=== PATIENT | male | born 1930 | race Caucasian/White ===

== ENCOUNTER 2016-08-10 05:37 | Inpatient (IN) | payer MEDICARE, BC ==
[2016-08-10] VITALS (36 sets, daily range): BP systolic 90–168; BP diastolic 51–81; PULSE 24–111; RESP 10–22; Ht 172.7 cm; Wt 67.5 kg
[~2016-08-10] VITALS: Ht 172.7 cm; Wt 67.5 kg
[2016-08-10] MEDS ORDERED: POLYMYXIN B 500000 UNIT INJ ONE (06:51)
[2016-08-10] MEDS ORDERED: SODIUM CL BACTERIOSTATIC 30 ML INJ ONE (06:51)
[2016-08-10] MEDS ORDERED: VANCOMYCIN 1 GM INJ ONE (06:51)
[2016-08-10] MEDS ORDERED: BUPIVACAINE LIPOSOME/PF 266 MG/20 ML VIAL INFIL SCH (07:00)
[2016-08-10] MEDS ORDERED: PREGABALIN 300 MG PO X1 PO SCH (07:00)
[2016-08-10] MEDS ORDERED: CEFAZOLIN 2GM/50 ML (PMX) 50 ML X1 BEFORE INCISION IVPB SCH (07:00)
[2016-08-10] MEDS ORDERED: SOD CHLORIDE 0.9% IV SCH (07:00)
[2016-08-10] MEDS ORDERED: LACTATED RINGER'S 1,000 ML IV SCH ×2 (07:00→10:05)
[2016-08-10] MEDS ORDERED: CELECOXIB 400 MG PO X1 DOSE PO SCH (07:00)
[2016-08-10] MEDS ORDERED: oxyCODONE (CR) 10 MG TAB [oxyCONTIN] X1 DOSE PO SCH (07:00)
[2016-08-10] MEDS ORDERED: SOD CHLORIDE 0.9% IVPB SCH (07:00)
[2016-08-10] MEDS ORDERED: PAIN COCKTAIL-CEFUROXIME IRR SCH ×7 (07:00)
[2016-08-10] MEDS ORDERED: EXPAREL NOTE (BUPIVICAINE LIPOSOMAL) XX SCH (07:00)
[2016-08-10] MEDS ORDERED: TRANEXAMIC ACID IV SCH (07:00)
[2016-08-10] MEDS ORDERED: traMADOL 50 MG TAB X 1 DOSE PO SCH (07:00)
[2016-08-10] MEDS ORDERED: TRANEXAMIC ACID IVPB SCH (07:00)
[2016-08-10] MEDS ORDERED: ROCURONIUM 50 MG INJ ONE (07:05)
[2016-08-10] MEDS ORDERED: LIDOCAINE 100 MG SYRINGE ONE (07:05)
[2016-08-10] MEDS ORDERED: MIDAZOLAM 1 MG/ML 2 ML INJ ONE (07:05)
[2016-08-10] MEDS ORDERED: FENTAnyl 50 MCG/ML VIAL ONE (07:05)
[2016-08-10] MEDS ORDERED: GLYCOPYRROLATE 1 MG INJ ONE (07:05)
[2016-08-10] MEDS ORDERED: NEOSTIGMINE 3 MG/3 ML SYRINGE ONE (07:05)
[2016-08-10] MEDS ORDERED: PROPOFOL 100 ML ONE (07:05)
[2016-08-10] MEDS ORDERED: ONDANSETRON 4 MG INJ ONE (07:06)
[2016-08-10] MEDS ORDERED: DEXAMETHASONE 4 MG/ML 1 ML INJ ONE (07:06)
[2016-08-10] MEDS ORDERED: BACITRACIN 50000 UNITS INJ IRR ONE (08:07)
[2016-08-10] MEDS ORDERED: MIDAZOLAM 1 MG/ML 2 ML INJ IV PRN (09:00)
[2016-08-10] MEDS ORDERED: EPHEDrine SULFATE 50 MG/5 ML SYG IV PRN (09:00)
[2016-08-10] MEDS ORDERED: HYDROmorphONE (0.2 MG/ML) 10ML SYG IV PRN ×3 (09:00)
[2016-08-10] MEDS ORDERED: ONDANSETRON 4 MG INJ IV PRN ×2 (09:00→10:30)
[2016-08-10] MEDS ORDERED: MEPERIDINE 25 MG INJ IV PRN (09:00)
[2016-08-10] MEDS ORDERED: TRIMETHOBENZAMIDE 100 MG/ML VIAL IM PRN (09:00)
[2016-08-10] MEDS ORDERED: FENTAnyl 50 MCG/ML VIAL IV PRN ×3 (09:00)
[2016-08-10] MEDS ORDERED: DIPHENHYDRAMINE 50 MG INJ IV PRN (09:00)
[2016-08-10] MEDS ORDERED: hydrALAzine 20 MG INJ IV PRN (09:00)
[2016-08-10] MEDS ORDERED: LABETALOL HCL 20MG INJ IV PRN (09:00)
--- NOTE | 2016-08-10 10:04 | OPPN ---
Date/Time of Note Date/Time of Note DATE: 08/10/16 TIME: 10:02 Operative/Procedure Note Dictation # [id number] Pre-Operative Diagnosis Left Hip OA Post-Operative Diagnosis Same Procedure Left Anterior TAMMY Surgeon: MADONNA HAYWARD MD Finish Machine Tender: AYLIN DUGAN PA-C Anesthesiologist: Quang Roman M.D. Findings Severe OA Blood Usage/Administration None Implants/Grafts Depuy TAMMY Estimated blood loss: 250 - 300 ml's Drains Hemovac x 1 Specimens Femoral Head Complications: None Anesthesia type: spinal MADONNA HAYWARD MD Aug 10, 2016 10:04
--- NOTE | 2016-08-10 10:06 | RADRPT ---
PROCEDURE: Intraoperative imaging of the left hip with fluoroscopy. CLINICAL INDICATION: Left hip pain. Intraoperative. TECHNIQUE: 16 images of the left hip were obtained in the operating room with an image intensifier . No radiologist was in attendance. 0.6 of fluoroscopy time was used. COMPARISON: No prior study is available for comparison. FINDINGS: Images demonstrate placement of a total left hip arthroplasty. IMPRESSION: 1. Satisfactory intraoperative imaging of the left hip. RPTAT: QQ .Salbador Long MD, MD Date Time Electronically viewed and signed by .Salbador Long MD, MD on 08/10/2016 10:06 .R/
[2016-08-10] MEDS ORDERED: ASPIRIN (EC) 325 MG TAB PO ONE (10:30)
[2016-08-10] MEDS ORDERED: oxyCODONE 5 MG TAB PO PRN ×2 (10:30)
[2016-08-10] MEDS ORDERED: MAGNESIUM HYDROXIDE 30ML CUP PO PRN (10:30)
[2016-08-10] MEDS ORDERED: NA PHOSPHATE/BIPHOS 133 ML ENEMA PR PRN (10:30)
[2016-08-10] MEDS ORDERED: NACL 0.9% 3 ML SYG IV SCH (10:30)
[2016-08-10] MEDS ORDERED: BISACODYL 10 MG SUPP PR PRN (10:30)
[2016-08-10] MEDS ORDERED: CEFAZOLIN 2 GM/50 ML (PMX) 50 ML IVPB SCH (10:30)
[2016-08-10] MEDS ORDERED: DIPHENHYDRAMINE 25 MG CAP PO PRN (10:30)
[2016-08-10] MEDS ORDERED: HYDROmorphONE 1 MG/ML SYG IV PRN (10:30)
--- NOTE | 2016-08-10 10:37 | RADRPT ---
PROCEDURE: XR Pelvis. CLINICAL INDICATION: Postop left hip arthroplasty. TECHNIQUE: Single AP view of the pelvis. COMPARISON: No prior studies are available for comparison. FINDINGS: Left hip arthroplasty is identified. Alignment is anatomic. No fracture or loosening or other acut e abnormality is seen. There is no evidence for hardware failure. Postsurgical changes are seen in the soft tissues around the left hip joint space. Joint space and subcutaneous gas is identified, a s expected. Adjacent surgical drain is seen in place. Ochoa catheter is identified in place. IMPRESSION: 1. Satisfactory postop appearances, status post left hip arthroplasty in anatomic alignment. RPTAT: HMJB .Hiram Douglas MD, MD Date Time Electronically viewed and signed by .Hiram Douglas MD, on 08/10/2016 10:36 .B/
[2016-08-10 10:42] LABS: HEMATOCRIT 37.2 % (42.0-52.0); HEMOGLOBIN 12.6 g/dl (14.0-18.0)
[2016-08-10 11:06] LABS: CALCIUM 8.6 mg/dl (8.4-10.2); CREATININE 0.99 mg/dl (0.61-1.24); POTASSIUM 4.6 mmol/L (3.5-5.1)
--- NOTE | 2016-08-10 11:11 | OPPN ---
Date/Time of Note Date/Time of Note DATE: 08/10/16 TIME: 11:10 Operative/Procedure Note Dictation # [id number] Pre-Operative Diagnosis Right Knee MM Tear Post-Operative Diagnosis Same Procedure Right Knee A/S and Partial MM Surgeon: MADONNA HAYWARD MD Anesthesiologist: JOAQUIN ZEPEDA MD Findings PHMM Tear Blood Usage/Administration None Implants/Grafts: Not applicable Estimated blood loss: none Drains: Not applicable Specimens: Not Applicable Complications: None Anesthesia type: general MADONNA HAYWARD MD Aug 10, 2016 11:11
[2016-08-10] MEDS: traMADol 50 MG TAB PO SCH ×3 (11:38→23:42)
[2016-08-10] MEDS: ACETAMINOPHEN 1000MG/100ML IV 100 ML IVPB SCH ×3 (11:38→23:42)
[2016-08-10] MEDS: CEFAZOLIN 2 GM/50 ML (PMX) 50 ML IVPB SCH ×2 (11:38→20:45)
--- NOTE | 2016-08-10 12:05 | OPR ---
DATE OF OPERATION: 08/10/2016 PREOPERATIVE DIAGNOSIS: Left hip osteoarthritis. POSTOPERATIVE DIAGNOSIS: Left hip osteoarthritis. OPERATION PERFORMED: Left anterior total hip arthroplasty. SURGEON: Madonna Vega MD FEED PROJECT ENGINEER: WENDI Acuña COMPONENTS USED: DePuy size 54 mm Gription [place] cup, 54/36 neutral AltrX polyethylene liner, si ze 13 standard Corail stem, 36+5 ceramic head. ANESTHESIA: Spinal plus general endotracheal intubation plus periarticular injection. ANESTHESIOLOGIST: Quang Roman MD ESTIMATED BLOOD LOSS: 300 mL. INTRAVENOUS FLUIDS: Crystalloid 2 L. SPECIMENS: Femoral head. DRAINS: Hemovac x1. COMPLICATIONS: None. DISPOSITION: The patient tolerated the procedure well and was taken to the recovery room in stable c ondition. INDICATIONS: The patient is an 86-year-old gentleman who has had progressive worsening pain in the left hip with radiographic evidence of severe osteoarthritis. He has failed nonsurgical means of tr eatment to control his pain including activity modifications, pain medications, and ambulatory arlene t devices. Despite these measures, he has had worsening pain, and I felt he would benefit from a to catrachita hip arthroplasty through an anterior approach. The risks, benefits, and alternatives of the procedure were explained in detail to the patient. I ex plained the risks of the surgery to include, but not be limited to: bleeding and possible need for b lood transfusion; infection; pain; stiffness; neurovascular injury with possible numbness, weakness, and/or paralysis anywhere from the hip down to the toes; fracture; instability; dislocation; leg le ngth inequality; wear and/or loosening of the prosthesis and possible need for future revision; bloo d clots; pulmonary embolism; and anesthetic complications such as heart attack, stroke, GI bleed, pn eumonia, and/or . Ample time was allowed for the patient to ask questions, all of which were ad dressed and answered. The patient understood the risks involved and wished to proceed. Informed cons ent was signed prior to the procedure. DESCRIPTION OF PROCEDURE: The patient's left hip was initialed with a marking pen in the preoperati ve area to identify the correct operative site. The patient was brought to the operating room and tr ansferred from the [facility] to the [facility] table where a spinal anesthetic was administered. The patient was then anesthetized and intubated. A Ochoa catheter was placed. Both feet were placed int o well-padded boots which were then placed into the leg holders of the traction booms. A timeout was performed to confirm that the left side was the correct operative site. The patient was given 2 g o f intravenous Ancef within one hour prior to the procedure. The operative hip was prepped and draped in the usual sterile fashion. A 10 cm oblique incision was made over the anterior aspect of the hip and carried down through subcu taneous tissue and fat with sharp dissection. The tensor fascia chong was incised along the length of the wound. The tensor fascia muscle was retracted laterally and the sartorius medially. The anterio r circumflex vessels were identified and tied off with 2-0 silk suture and coagulated with the [place] Link trimmer loader. The rectus femoris was elevated off the anterior capsule and an anterior capsulec kindra performed. A femoral neck osteotomy was made and the head removed from the acetabulum. The acet abulum was denuded of cartilage circumferentially, as was the femoral head. Retractors were placed a round the acetabulum. The remnants of the labrum and ligamentum teres were excised. I reamed the angie tabulum to the medial wall and then went into an anatomic position and increased the reamer size in 2 mm increments until I got a good bite and was down to bleeding subchondral bone. The [place] cup was opened and impacted into the acetabulum and sat flush circumferentially, gettin g a good bite. C-arm imaging showed it had about 40 to 45 degrees of abduction and 20 degrees of ant eversion. No acetabular screw was placed. The real liner was opened and impacted into the acetabul um and sat flush circumferentially. Attention was turned towards the femur. The operative leg was carefully lowered to the floor with the leg adducted. The foot was then solid plasterer ally rotated to approximately 110 degrees. A posteromedial release was performed to optimize exposur e. The femoral hook was placed underneath the proximal femur and the hydraulic lift was then used to elevate the femur up out of the wound. The nae cutter osteotome was used to remove the remaining overhanging greater trochanter. The femur was then broached, going up in one size increments until it sat flush with the neck cut and a stable fit was achieved. The trial neck and head were assembled and reduced into the acetabulum. Fluoroscopic imaging showed the components to be in good position and the leg lengths and offsets to be equal. At this point, the trial was dislocated and the trial broach removed. The canal was irrigated and dr rodriguez. The real stem was opened and impacted into the femur. The trunnion was irrigated and dried, and the real femoral head was impacted onto the trunnion, and reduced into the acetabulum. The soft tissues were infiltrated with a mixture of 150 mg of 0.5% Bupivacaine, 8 mg of Duramorph, 3 00 mcg of epinephrine, 30 mg of Toradol, 100 mcg of clonidine, 750 mg of cefuroxime and 86 mL of nor mal saline, followed by an injection of 266 mg of liposomal Bupivacaine. At this point the hip was i rrigated with a mixture of betadine/saline and then antibiotic saline with pulsatile lavage. A Hemov ac drain was placed in the deep portion of the wound and brought out the anterolateral thigh. There was good hemostasis. The tensor fascia chong was repaired with a running #1 Vicryl. The deep fat laye r was irrigated and closed with 2-0 Stratafix and the subcutaneous layer closed with 3-0 Stratafix a nd the skin was sealed with Prineo Dermabond. The drain was secured with 3-0 nylon. The sponge and needle counts were correct at the end of the case. The wound was covered with an occl usive dressing. The patient was awakened, extubated, and taken to the recovery room in stable condit ion. Dictated By: MADONNA RODRIGUEZ/MIGUEL Conf#: [id number] DID#: [id number]
--- NOTE | 2016-08-10 13:22 | CONS ---
DATE OF ADMISSION: 08/10/2016 DATE OF CONSULTATION: 08/10/2016 Thank you very much, Dr. Vega, for allowing me to evaluate the above patient who underwent left to catrachita hip arthroplasty earlier today. HISTORICAL EVENTS: As you well know, this patient has had progressive disabling pain involving his left hip and for this elected to proceed with surgery earlier today. In recovery, he is comfortable without cough, wheezing, shortness of breath, nausea, vomiting, abdominal or chest pain. PAST MEDICAL HISTORY: Notable bradycardia, this being noted preoperatively, undergoing cardiology e polina preop as well. It was felt that surgery could proceed with postop monitoring. He had evidence of ventricular ectopy at that time. Transient hypertension noted by Dr. Haro preoperatively. He has no history of coronary, diabete s, ulcers or peptic ulcer disease. Prior smoker. Past medical history is otherwise unremarkable. SURGICAL HISTORY: Includes TURP. FAMILY HISTORY: Positive for stroke. SOCIAL HISTORY: He does not smoke. 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 ALLERGIES: NONE. PHYSICAL EXAMINATION: GENERAL: [place] male in no acute distress. VITAL SIGNS: BP 122/80, pulse 42, respirations were 18. He was afebrile. EYES: Extraocular muscles were full. NOSE, MOUTH, AND THROAT: Normal. NECK: Supple. There was no jugular venous distention, thyroid enlargement or adenopathy. Carotids 2+. LUNGS: Clear. HEART: Rhythm regular. No murmur. No third or fourth sound. ABDOMEN: Nontender. Liver and spleen were not palpable. No masses or tenderness were noted. EXTREMITIES: No edema. Calves nontender. IMPRESSION: 1. Stable postoperative left hip. 2. Notable bradycardia preop with evidence of the same. As recommended by cardiology, we will griselda tor him postoperatively and be sure TSH has been obtained. 3. Hypertension noted by Dr. Haro preoperatively. His blood pressure will be monitored post. 4. We will follow him daily for signs and symptoms of thromboembolic disease despite appropriate de ep venous thrombosis prophylaxis. Dictated By: MARIA D AMARO/MIGUEL Conf#: [id number] DID#: [id number]
--- NOTE | 2016-08-10 13:55 | PN ---
Date/Time of Note Date/Time of Note DATE: 08/10/16 TIME: 13:54 Assessment/Plan Lines/Catheters IV Catheter Type (from Nrsg): Peripheral IV Drake in Place (from Nrsg): Yes Assessment/Plan Assessment/Plan Stable in PACU s/p left anterior TAMMY -cont abx -pain meds -ASA/SCDs -OOB with PT -monitor drain -check AM labs -d/c drake in AM XR of the left hip shows good alignment with no evidence of dislocation Subjective 24 Hr Interval Summary Doing well in PACU. Minimal pain. Moving all extremities. Exam/Review of Systems Vital Signs Vitals Vital Signs Date Time Temp Pulse Resp B/P Pulse Ox O2 Delivery O2 Flow Rate FiO2 08/10/16 12:15 40 14 135/65 100 Nasal Cannula 2.0 08/10/16 10:18 98.1 Exam Free Text/Dictation Dressing dry Incision clean, dry, and intact without redness or drainage 5/5 Quadriceps, Tibialis Anterior, EHL, Gastroc, Soleus, Peroneals Normal sensation Palpable DT/PT, CR <2 sec No distal edema Results Result Diagram: 08/10/16 1035 08/10/16 1035 AYLIN DUGAN PA-C Aug 10, 2016 13:55
[2016-08-10 13:59] LABS: MAGNESIUM 1.8 mg/dl (1.7-2.5)
[2016-08-10 14:30] LABS: THYROID STIMULATING HORMONE 2.74 MIU/L (0.465-4.680)
[2016-08-10] MEDS ORDERED: BACITRACIN 50000 UNITS INJ ONE (15:06)
--- NOTE | 2016-08-10 17:13 | CONS ---
Date/Time of Note Date/Time of Note DATE: 08/10/16 TIME: 16:51 Assessment/Plan Assessment/Plan Additional Assessment/Plan 86 yowm w/ hx of sinus bradycardia and TURP but no known CAD who is s/p left total hip arthoplasty. Pt is in Secondary Degree AVB, Mobitz I. He also has had a 3.2 sec pause. Unclear if he is symptomatic, as he is recovering from sedation, but he has not been hypotensive and denies lightheadiness. Mobitz I tends to be a stable rhythm, but as a precaution, would transfer to the ICU for monitoring. Keep pacer pads in place and atropine at the bedside. Don't believe he needs a transvenous pacer or even an atropine gtt, as his BP has been stable. Would check electrolytes and replete. Also check echo tomorrow. Will follow. Continue post-op care as you are. Consultation Date/Type/Reason Admit Date/Time Aug 10, 2016 at 05:37 Date of Consultation: Aug 10, 2016 Type of Consultation: Cardiology Reason for Consultation bradycardia (Mobitz 2nd, Type I post-op) Referring Provider: MARIA D FOREMAN MD Hx of Present Illness 86 yowm w/ hx of sinus bradycardia and TURP but no known CAD who is s/p left total hip arthoplasty. Since pt has been transfered to the telemetry floor, he has been in a second degree AVB, Mobitz Type I block. (Per report, he may have been in this rhythm in the PACU.) His heart rate has varied from mid-30s to 50s. His longest pause has been 3.2 sec. Unclear if he has been symptomatic from his, as he is still recovering from the sedation. He has not been hypotensive (SBP 119-141). He denies cp or sob or lightheadiness on interview. Pt was seen by Dr. Alexy Anguiano on Aug 04, 2016 for a pre-op evaluation. At that visit, pt's ECG revealed sinus susan at 51 w/ 1 AVB. Pt was asymptomatic. Denied hx of CAD. Unclear if pt had this type of block before. (There is an old partial ECG in the physical chart from 12/05/14 with a computer interpretation of Second degree Mobitz II, but there is not enough of a rhythm strip to confirm that.) Social History Smoking Status: Never smoker Exam/Review of Systems Vital Signs Vitals Vital Signs Date Time Temp Pulse Resp B/P Pulse Ox O2 Delivery O2 Flow Rate FiO2 08/10/16 16:13 50 139/69 08/10/16 15:51 98.0 20 100 08/10/16 14:15 Nasal Cannula 2.0 Exam Gen - awake, alert, nad Heent - perrla, eomi Neck - no JVD, no carotid bruit Heart - bradycardic, regular Abd -soft, Ext - no edema Neuro - sleepy but arousable, answers questions appropriately Results Result Diagram: 08/10/16 1035 08/10/16 1035 Results 24 hrs Laboratory Tests Test 08/10/16 10:35 Anion Gap 13 Blood Urea Nitrogen 19 Calcium Level 8.6 Carbon Dioxide Level 27 Chloride Level 107 Creatinine 0.99 Glucose Level 117 Hematocrit 37.2 L Hemoglobin 12.6 L Magnesium Level 1.8 Potassium Level 4.6 Sodium Level 142 Thyroid Stimulating Hormone (TSH) 2.740 Medications Medications Current Medications Lactated Ringer's (Lr) 1,000 ml @ 100 mls/hr Q10H IV Last administered on 06:26; Admin Dose 100 MLS/HR; Start 08/10/16 at 07:00; Stop 08/10/16 at 16:59 Miscellaneous Information 1 ea 1 ea NOTE XX ; Start 08/10/16 at 07:00; Stop at 06:59 Lactated Ringer's 1,000 ml @ 125 mls/hr Q8H IV ; Start 08/10/16 at 10:05 Acetaminophen (Ofirmev 1000mg/ 100ml Iv) 100 ml @ 400 mls/hr Q6 IVPB Last administered on 08/10/16 11:38; Admin Dose 400 MLS/HR; Start 08/10/16 at 12:00; Stop 08/11/16 at 11:59 Tramadol HCl (Ultram) 50 mg Q6 PO Last administered on 08/10/16 11:38; Admin Dose 50 MG; Start 08/10/16 at 12:00; Stop 08/13/16 at 11:59 Oxycodone HCl (Roxicodone) 5 mg Q4H PRN PO PAIN LEVEL 1-3; Start 08/10/16 at 10: 30 Oxycodone HCl (Roxicodone) 10 mg Q4H PRN PO PAIN LEVEL 4-7; Start 08/10/16 at 10 :30 Hydromorphone HCl (Dilaudid) 1 mg Q3H PRN IV PAIN LEVEL 8-10; Start 08/10/16 at 10:30 Ondansetron HCl (Zofran Inj) 4 mg Q6H PRN IV NAUSEA AND/OR VOMITING; Start 08/10 at 10:30 Bisacodyl (Dulcolax Supp) 10 mg Q12H PRN [place] CONSTIPATION; Start 08/10/16 at 10: 30 Magnesium Hydroxide (Milk Of Mag) 30 ml BID PRN PO CONSTIPATION; Start 08/10/16 at 10:30 Sodium Biphosphate/ Sodium Phosphate (Fleet Enema) 133 ml DAILY PRN [place] CONSTIPATION; Start 08/10/16 at 10:30 Docusate Sodium (Colace) 100 mg BID PO ; Start 08/10/16 at 21:00 Diphenhydramine HCl (Benadryl) 25 mg Q6H PRN PO PRURITUS; Start 08/10/16 at 10: 30 Aspirin (Ecotrin) 325 mg BID PO ; Start 08/11/16 at 09:00 Pregabalin (Lyrica) 50 mg BID PO ; Start 08/10/16 at 21:00 Pantoprazole 40 mg 40 mg BID@06,18 PO ; Start 08/10/16 at 18:00 Cefazolin Sodium/ Dextrose (Ancef 2 Gm/50 ml (Pmx)) 50 ml @ 100 mls/hr Q8H IVPB Last administered on 08/10/16t 11:38; Admin Dose 100 MLS/HR; Start 08/10/16 at 11:30; Stop 08/11/16 at 03:59 IDANIA BOOKER Aug 10, 2016 17:07
[2016-08-10] MEDS ORDERED: ATROPINE 1 MG/10 ML SYRINGE IV PRN (18:00)
[2016-08-10] MEDS: PANTOPRAZOLE (EC) 40 MG TAB PO SCH (18:31)
[2016-08-10] MEDS: LACTATED RINGER'S 1,000 ML IV SCH (18:32)
[2016-08-10] MEDS: DOCUSATE SODIUM 100 MG CAP PO SCH (20:48)
[2016-08-10] MEDS: PREGABALIN 25 MG CAP PO SCH (20:48)
[2016-08-11] VITALS (20 sets, daily range): BP systolic 80–123; BP diastolic 40–72; PULSE 24–54; RESP 10–27
[2016-08-11] MEDS: CEFAZOLIN 2 GM/50 ML (PMX) 50 ML IVPB SCH (03:23)
[2016-08-11] MEDS: LACTATED RINGER'S 1,000 ML IV SCH ×3 (03:35→19:00)
[2016-08-11] MEDS: PANTOPRAZOLE (EC) 40 MG TAB PO SCH ×2 (05:51→17:19)
[2016-08-11] MEDS: traMADol 50 MG TAB PO SCH ×3 (05:51→17:19)
[2016-08-11] MEDS: ACETAMINOPHEN 1000MG/100ML IV 100 ML IVPB SCH (05:52)
[2016-08-11 06:14] LABS: HEMATOCRIT 32.9 % (42.0-52.0); HEMOGLOBIN 11.3 g/dl (14.0-18.0)
[2016-08-11 06:25] LABS: POTASSIUM 4.6 mmol/L (3.5-5.1)
[2016-08-11 06:28] LABS: CREATININE 1.05 mg/dl (0.61-1.24)
[2016-08-11 06:29] LABS: CALCIUM 8.8 mg/dl (8.4-10.2)
[2016-08-11] MEDS: DOCUSATE SODIUM 100 MG CAP PO SCH ×2 (08:24→20:12)
[2016-08-11] MEDS: PREGABALIN 25 MG CAP PO SCH ×2 (08:24→20:12)
[2016-08-11] MEDS: ASPIRIN (EC) 325 MG TAB PO SCH ×2 (08:25→20:12)
--- NOTE | 2016-08-11 08:25 | CONS ---
Date/Time of Note Date/Time of Note DATE: 08/11/16 TIME: 08:22 Assessment/Plan Assessment/Plan Additional Assessment/Plan 1. Stable postoperative left hip. 2. Arrhythmia noted, await cards comments re needed pacemaker, will leave in ICU and observe for now, labs rev 3. Hypertension, not problematic Consultation Date/Type/Reason Admit Date/Time Aug 10, 2016 at 05:37 Initial Consult Date 08/10/16 Type of Consultation: Cardiology Referring Provider: MARIA D FOREMAN MD Detailed Summary Respiratory: No shortness of breath Cardiovascular: No chest pain, No lightheadedness Gastrointestinal: no complaints Genitourinary: other (drake just removed) Musculoskeletal: bone/joint pain (mild left hip pain) Exam/Review of Systems Vital Signs Vitals Vital Signs Date Time Temp Pulse Resp B/P Pulse Ox O2 Delivery O2 Flow Rate FiO2 08/11/16 07:00 97.9 36 14 114/40 97 Room Air 08/11/16 05:00 2.0 Intake and Output 08/10/16 08/10/16 08/11/16 15:00 23:00 07:00 Intake Total 2326.53 ml 870 ml 1000 ml Output Total 1020 ml 480 ml 720 ml Balance 1306.53 ml 390 ml 280 ml Exam Neck: No jvd Respiratory: clear to auscultation Cardiovascular: irregular rhythm, regular rate and rhythm, No murmurs/extra sounds Gastrointestinal: soft Extremities: No edema (and no calf tend) Results Result Diagram: 08/11/16 0540 08/11/16 0540 Results 24 hrs Laboratory Tests Test 08/10/16 10:35 08/11/16 05:40 Anion Gap 13 16 Blood Urea Nitrogen 19 24 H Calcium Level 8.6 8.8 Carbon Dioxide Level 27 23 Chloride Level 107 103 Creatinine 0.99 1.05 Glucose Level 117 103 Hematocrit 37.2 L 32.9 L Hemoglobin 12.6 L 11.3 L Magnesium Level 1.8 Potassium Level 4.6 4.6 Sodium Level 142 137 Thyroid Stimulating Hormone (TSH) 2.740 Medications Medications Current Medications Miscellaneous Information 1 ea 1 ea NOTE XX ; Start 08/10/16 at 07:00; Stop at 06:59 Acetaminophen (Ofirmev 1000mg/ 100ml Iv) 100 ml @ 400 mls/hr Q6 IVPB Last administered on 08/11/16 05:52; Admin Dose 400 MLS/HR; Start 08/10/16 at 12:00; Stop 08/11/16 at 11:59 Tramadol HCl (Ultram) 50 mg Q6 PO Last administered on 08/11/16 05:51; Admin Dose 50 MG; Start 08/10/16 at 12:00; Stop 08/13/16 at 11:59 Oxycodone HCl (Roxicodone) 5 mg Q4H PRN PO PAIN LEVEL 1-3; Start 08/10/16 at 10: 30 Oxycodone HCl (Roxicodone) 10 mg Q4H PRN PO PAIN LEVEL 4-7; Start 08/10/16 at 10 :30 Hydromorphone HCl (Dilaudid) 1 mg Q3H PRN IV PAIN LEVEL 8-10; Start 08/10/16 at 10:30 Ondansetron HCl (Zofran Inj) 4 mg Q6H PRN IV NAUSEA AND/OR VOMITING; Start 08/10 at 10:30 Bisacodyl (Dulcolax Supp) 10 mg Q12H PRN [place] CONSTIPATION; Start 08/10/16 at 10: 30 Magnesium Hydroxide (Milk Of Mag) 30 ml BID PRN PO CONSTIPATION; Start 08/10/16 at 10:30 Sodium Biphosphate/ Sodium Phosphate (Fleet Enema) 133 ml DAILY PRN [place] CONSTIPATION; Start 08/10/16 at 10:30 Docusate Sodium (Colace) 100 mg BID PO Last administered on 08/10/16 20:48; Admin Dose 100 MG; Start 08/10/16 at 21:00 Diphenhydramine HCl (Benadryl) 25 mg Q6H PRN PO PRURITUS; Start 08/10/16 at 10: 30 Aspirin (Ecotrin) 325 mg BID PO ; Start 08/11/16 at 09:00 Pregabalin (Lyrica) 50 mg BID PO Last administered on 08/10/16 20:48; Admin Dose 50 MG; Start 08/10/16 at 21:00 Pantoprazole (Protonix Tab) 40 mg BID@06,18 PO Last administered on 08/11/16 05 :51; Admin Dose 40 MG; Start 08/10/16 at 18:00 Atropine Sulfate 0.5 mg 0.5 mg ONCE PRN IV DECREASED HEART RATE; Start 08/10/16 at 18:00 Lactated Ringer's (Lr) 1,000 ml @ 100 mls/hr Q10H IV Last administered on 07:13; Admin Dose 100 MLS/HR; Start 08/10/16 at 17:40 MARIA D FOREMAN MD Aug 11, 2016 08:24
--- NOTE | 2016-08-11 08:53 | PN ---
Date/Time of Note Date/Time of Note DATE: 08/11/16 TIME: 08:50 Assessment/Plan Lines/Catheters IV Catheter Type (from Nrsg): Peripheral IV Ochoa in Place (from Nrsg): Yes Assessment/Plan Assessment/Plan Stable POD #1 with asymptomatic bradycardia, s/p left anterior TAMMY -d/c abx -pain meds -ASA/SCDs -cardiology consult regarding HR -OOB with PT -drain removed -check AM labs -d/c planning. Will await for cardiology eval for definitive d/c plan/date Subjective 24 Hr Interval Summary Doing well. No acute overnight events. Denies CP or SOB. Pain minimal. Notable asymptomatic bradycardia. Exam/Review of Systems Vital Signs Vitals Vital Signs Date Time Temp Pulse Resp B/P Pulse Ox O2 Delivery O2 Flow Rate FiO2 08/11/16 07:00 97.9 36 14 114/40 97 Room Air 08/11/16 05:00 2.0 Intake and Output 08/10/16 08/10/16 08/11/16 15:00 23:00 07:00 Intake Total 2326.53 ml 870 ml 1000 ml Output Total 1020 ml 480 ml 720 ml Balance 1306.53 ml 390 ml 280 ml Exam Free Text/Dictation Hemovac: 320cc Dressing dry Incision clean, dry, and intact without redness or drainage 5/5 Quadriceps, Tibialis Anterior, EHL, Gastroc, Soleus, Peroneals Normal sensation Palpable DT/PT, CR <2 sec No distal edema Results Result Diagram: 08/11/16 0540 08/11/16 0540 AYLIN DUGAN PA-C Aug 11, 2016 08:53
--- NOTE | 2016-08-11 16:33 | RADRPT ---
Echocardiogram Report Patient Name: UNRULY PANTOJA Gender: Male Date: 1930 Study Date: 11-Aug-2016 Tentmaker: Henrry Lewis RDCS Location: I Ref. Physician: IDANIA BOOKER Quality: Good Procedures: Transthoracic echocardiogram with complete 2D, M-Mode, and doppler examination. Indications: Bradycardia. 2D/M Mode Doppler Measurement Value Normal Ranges Measurement Value Normal Ranges LVIDd 2D 4.8 3.5 - 5.6 cm AV Peak Bimal 1.1 m/sec LVIDs 2D 2.7 2.1 - 4.1 cm AV Peak PG 5.1 mmHg LVPWd 2D 1.1 0.6 - 1.1 cm LVOT Peak Bimal 0.7 m/sec IVSd 2D 1.2 0.6 - 1.1 cm LVOT Peak PG 2.0 mmHg AoR Diam 2D 2.8 2.0 - 3.7 cm TR Peak Bimal 2.5 m/sec EDV 2D 106.2 cm3 TR Peak PG 25.7 mmHg ESV 2D 20.1 cm3 RVSP 34.0 mmHg LA Dimen 2D 4.6 2.3 - 4.0 cm Findings Left Ventricle: Normal left ventricular systolic function. Normal left ventricular cavity size. Mild concentric left ventricular hypertrophy. Ejection fraction is visually estimated at 65 %. Tissue Doppler/Mitral Doppler indices are consistent with impaired relaxation (Stage I diastolic dysfunction). Right Ventricle: Normal right ventricular size. Normal right ventricular systolic function. Left Atrium: There is moderate enlargement of left atrium. Right Atrium: The right atrium is normal in size. Mitral Valve: Mitral valve leaflets appear mildly thickened. Mild mitral valve regurgitation. Aortic Valve: Aortic sclerosis without stenosis. Trace aortic valve regurgitation. Tricuspid Valve: Normal right ventricular systolic pressure. Estimated peak PA systolic pressure 23 mmHg. There is mild tricuspid regurgitation. Pulmonic Valve: Pulmonic valve not well visualized. Pericardium: Normal pericardium with no significant pericardial effusion. Aorta: Normal aortic root. IVC: The IVC is not well visualized. Conclusions Normal left ventricular systolic function. Normal left ventricular cavity size. Mild concentric left ventricular hypertrophy. Ejection fraction is visually estimated at 65 %. Tissue Doppler/Mitral Doppler indices are consistent with impaired relaxation (Stage I diastolic dysfunction). Normal right ventricular size. Normal right ventricular systolic function. There is moderate enlargement of left atrium. Normal right ventricular systolic pressure. Estimated peak PA systolic pressure 23 mmHg. There is mild tricuspid regurgitation. The IVC is not well visualized. No Vegetation, masses, or thrombi seen. Electronically Signed By: Jj Cox 11-Aug-2016 16:32:18 -0800 Patient Name: UNRULY PANTOJA Study Date: 11-Aug-2016 [id number]
--- NOTE | 2016-08-11 17:01 | CONS ---
Date/Time of Note Date/Time of Note DATE: 08/11/16 TIME: 16:54 Consult Date/Type/Reason Admit Date/Time Aug 10, 2016 at 05:37 Initial Consult Date 08/10/16 Type of Consultation: Cardiology Ordering Provider: MARIA D FOREMAN MD Subjective no acute events. pt with frequent runs of bradycardia while resting in bed, between 2nd degree type 1 and 2:1 block. pt is completely asymptomatic. no pauses > 3 sec last night and during day. pt ambulatory with pt and hr up to 80s -90s without dropped beats. no cp/sob/dizziness ROS: const negative gu: difficulty urinating msk: hip pain Objective PE: Gen - awake, alert, nad Heent - perrl, eomi Neck - no JVD, no carotid bruit Heart - susan, irregular rhythm. nl s1s2, ii/vi lei rusb. Abd -soft, Ext - no edema, l hip dressing in place Neuro - non focal Vital Signs Date Time Temp Pulse Resp B/P Pulse Ox O2 Delivery O2 Flow Rate FiO2 08/11/16 14:00 37 20 96 Room Air 08/11/16 12:00 98.0 08/11/16 05:00 2.0 Intake and Output 08/10/16 08/10/16 08/11/16 15:00 23:00 07:00 Intake Total 2326.53 ml 870 ml 1100 ml Output Total 1020 ml 480 ml 720 ml Balance 1306.53 ml 390 ml 380 ml Results/Medications Result Diagram: 08/11/16 0540 08/11/16 0540 Results 24 hrs Laboratory Tests Test 08/11/16 05:40 Anion Gap 16 Blood Urea Nitrogen 24 H Calcium Level 8.8 Carbon Dioxide Level 23 Chloride Level 103 Creatinine 1.05 Glucose Level 103 Hematocrit 32.9 L Hemoglobin 11.3 L Potassium Level 4.6 Sodium Level 137 Medications tele reviewed per hpi hip xray films Satisfactory postop appearances, status post left hip arthroplasty in anatomic alignment. Current Medications Miscellaneous Information 1 ea NOTE XX ; Start 08/10/16 at 07:00; Stop 08/14/16 at 06:59 Tramadol HCl (Ultram) 50 mg Q6 PO Last administered on 08/11/16t 12:25; Admin Dose 50 MG; Start 08/10/16 at 12:00; Stop 08/13/16 at 11:59 Oxycodone HCl (Roxicodone) 5 mg Q4H PRN PO PAIN LEVEL 1-3; Start 08/10/16 at 10: 30 Oxycodone HCl (Roxicodone) 10 mg Q4H PRN PO PAIN LEVEL 4-7; Start 08/10/16 at 10 :30 Hydromorphone HCl (Dilaudid) 1 mg Q3H PRN IV PAIN LEVEL 8-10; Start 08/10/16 at 10:30 Ondansetron HCl (Zofran Inj) 4 mg Q6H PRN IV NAUSEA AND/OR VOMITING; Start 08/10 at 10:30 Bisacodyl (Dulcolax Supp) 10 mg Q12H PRN [place] CONSTIPATION; Start 08/10/16 at 10: 30 Magnesium Hydroxide (Milk Of Mag) 30 ml BID PRN PO CONSTIPATION; Start 08/10/16 at 10:30 Sodium Biphosphate/ Sodium Phosphate (Fleet Enema) 133 ml DAILY PRN [place] CONSTIPATION; Start 08/10/16 at 10:30 Docusate Sodium (Colace) 100 mg BID PO Last administered on 08/11/16 08:24; Admin Dose 100 MG; Start 08/10/16 at 21:00 Diphenhydramine HCl (Benadryl) 25 mg Q6H PRN PO PRURITUS; Start 08/10/16 at 10: 30 Aspirin (Ecotrin) 325 mg BID PO Last administered on 08/11/16 08:25; Admin Dose 325 MG; Start 08/11/16 at 09:00 Pregabalin (Lyrica) 50 mg BID PO Last administered on 08/11/16 08:24; Admin Dose 50 MG; Start 08/10/16 at 21:00 Pantoprazole (Protonix Tab) 40 mg BID@06,18 PO Last administered on 08/11/16 05 :51; Admin Dose 40 MG; Start 08/10/16 at 18:00 Atropine Sulfate 0.5 mg 0.5 mg ONCE PRN IV DECREASED HEART RATE; Start 08/10/16 at 18:00 Lactated Ringer's (Lr) 1,000 ml @ 100 mls/hr Q10H IV Last administered on 07:13; Admin Dose 100 MLS/HR; Start 08/10/16 at 17:40 Tamsulosin HCl (Flomax) 0.4 mg HS PO ; Start 08/11/16 at 21:00 Assessment/Plan Chief Complaint/Hosp Course Impression: # Bradycardia- 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 no evidence to support high degree heart block. report of 3 sec pause, but this was post op while pt still with anesthesia. no significant or symptomatic pause. pt ambulatory with normal chronotropic competence. pt is not on avn blockers. 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 - no indication for ppm at this time. - ok to transfer to non-[facility] floor for further rehab. - cont to avoid avn blockers - f/u with Dr. 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 # s/p L TAMMY - pt/ot per ortho d/w Dr. Gonzalez and Dr. Foreman Problems: BARBARA RODRÍGUEZ Aug 11, 2016 17:01
--- NOTE | 2016-08-11 17:08 | RADRPT ---
Vent Rate: 35 bpm RR Interval: 0 msec IN Interval: 0 msec QRS Duration: 92 msec QT Interval: 472 msec QTC Interval: 360 msec P-R-T [place]: 61 - 19 - 68 degrees Sinus bradycardia with varying AV block (evidence of Mobitz I as well as junctional escape complexes) Abnormal ECG Electronically Signed By: Paco Nevarez [id number]
[2016-08-11] MEDS ORDERED: TAMSULOSIN (SR) 0.4 MG CAP PO SCH (21:00)
[2016-08-12] VITALS (11 sets, daily range): BP systolic 103–123; BP diastolic 51–95; PULSE 28–54; RESP 7–18
[2016-08-12] MEDS: PANTOPRAZOLE (EC) 40 MG TAB PO SCH (06:27)
[2016-08-12] MEDS: traMADol 50 MG TAB PO SCH ×3 (06:28→12:22)
[2016-08-12 06:36] LABS: HEMATOCRIT 31.2 % (42.0-52.0); HEMOGLOBIN 10.8 g/dl (14.0-18.0)
[2016-08-12 07:01] LABS: POTASSIUM 4.2 mmol/L (3.5-5.1)
[2016-08-12 07:04] LABS: CREATININE 1.3 mg/dl (0.61-1.24)
[2016-08-12 07:05] LABS: CALCIUM 8.8 mg/dl (8.4-10.2)
--- NOTE | 2016-08-12 07:44 | CONS ---
Date/Time of Note Date/Time of Note DATE: 08/12/16 TIME: 07:31 Consult Date/Type/Reason Admit Date/Time Aug 10, 2016 at 05:37 Initial Consult Date 08/10/16 Type of Consultation: Cardiology Ordering Provider: MARIA D FOREMAN MD Subjective overnight pt transferred to . pt noted on monitor to have bradycardia but bp stable and asymptomatic. There was concern that patient may have 3rd degree hb. EKG obtained showing sinus susan with 2nd degree type 1 block. Pt transferred to ICU, tele tracings reviewed. pt with hrs of upper 20s to 30s when sleeping, rhythm is sinus susan with 2nd degree type I heart block, no pauses > 3 sec. pt with intermittent jxn escape rhythm for 1-2 beats as well, but no 3rd degree hb on strips available. Pt denies any cp/sob/dizziness/ presyncope. pt states was out of bed yesterday night, no dizziness. pt seen this am was sleeping hrs 30s, after awakening immediately hr went up to 60s with sinus rhythm, but when pt fer tback to sleep resumed 2:1 block with 2nd degree type I block. Discussion held with nurse and patient. Patient states he would like to go home , states he is not symptomatic and if he does get symptomatic he will seek medical attention. Pt states he does not want pacemaker unless there is a strong indication for placement. Objective ROS: const: negative GI: negative Vital Signs Date Time Temp Pulse Resp B/P Pulse Ox O2 Delivery O2 Flow Rate FiO2 08/12/16 04:25 28 08/11/16 22:00 19 116/67 95 Room Air 08/11/16 20:00 98.6 08/11/16 05:00 2.0 Intake and Output 08/11/16 08/11/16 08/12/16 15:00 23:00 07:00 Intake Total 950 ml 2400 ml Output Total 835 ml Balance 950 ml 1565 ml Results/Medications Result Diagram: 08/12/16 0625 08/12/16 0625 Results 24 hrs Laboratory Tests Test 08/12/16 06:25 Anion Gap 15 Blood Urea Nitrogen 28 H Calcium Level 8.8 Carbon Dioxide Level 26 Chloride Level 103 Creatinine 1.30 H Glucose Level 73 Hematocrit 31.2 L Hemoglobin 10.8 L Potassium Level 4.2 Sodium Level 140 Medications PE: Gen - awake, alert, nad Heent - perrl, eomi Neck - no JVD, no carotid bruit Heart - susan, irregular rhythm. nl s1s2, ii/vi lei rusb. Abd -soft, Ext - no edema, l hip dressing in place Neuro - non focal Current Medications Miscellaneous Information 1 ea NOTE XX ; Start 08/10/16 at 07:00; Stop 08/14/16 at 06:59 Tramadol HCl (Ultram) 50 mg Q6 PO Last administered on 08/12/16 06:28; Admin Dose 50 MG; Start 08/10/16 at 12:00; Stop 08/13/16 at 11:59 Oxycodone HCl (Roxicodone) 5 mg Q4H PRN PO PAIN LEVEL 1-3; Start 08/10/16 at 10: 30 Oxycodone HCl (Roxicodone) 10 mg Q4H PRN PO PAIN LEVEL 4-7; Start 08/10/16 at 10 :30 Hydromorphone HCl (Dilaudid) 1 mg Q3H PRN IV PAIN LEVEL 8-10; Start 08/10/16 at 10:30 Ondansetron HCl (Zofran Inj) 4 mg Q6H PRN IV NAUSEA AND/OR VOMITING; Start 08/10 at 10:30 Bisacodyl (Dulcolax Supp) 10 mg Q12H PRN [place] CONSTIPATION; Start 08/10/16 at 10: 30 Magnesium Hydroxide (Milk Of Mag) 30 ml BID PRN PO CONSTIPATION; Start 08/10/16 at 10:30 Sodium Biphosphate/ Sodium Phosphate (Fleet Enema) 133 ml DAILY PRN [place] CONSTIPATION; Start 08/10/16 at 10:30 Docusate Sodium (Colace) 100 mg BID PO Last administered on 08/11/16 20:12; Admin Dose 100 MG; Start 08/10/16 at 21:00 Diphenhydramine HCl (Benadryl) 25 mg Q6H PRN PO PRURITUS; Start 08/10/16 at 10: 30 Aspirin (Ecotrin) 325 mg BID PO Last administered on 08/11/16 20:12; Admin Dose 325 MG; Start 08/11/16 at 09:00 Pregabalin (Lyrica) 50 mg BID PO Last administered on 08/11/16 20:12; Admin Dose 50 MG; Start 08/10/16 at 21:00 Pantoprazole (Protonix Tab) 40 mg BID@06,18 PO Last administered on 08/12/16 06 :27; Admin Dose 40 MG; Start 08/10/16 at 18:00 Atropine Sulfate 0.5 mg 0.5 mg ONCE PRN IV DECREASED HEART RATE; Start 08/10/16 at 18:00 Lactated Ringer's (Lr) 1,000 ml @ 100 mls/hr Q10H IV Last administered on 19:00; Admin Dose 100 MLS/HR; Start 08/10/16 at 17:40 Tamsulosin HCl (Flomax) 0.4 mg HS PO Last administered on 08/11/16 20:13; Admin Dose 0.4 MG; Start 08/11/16 at 21:00 Assessment/Plan Chief Complaint/Hosp Course Impression: # Bradycardia- 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 no high degree heart block.no significant or symptomatic pause. pt ambulatory with normal chronotropic competence. pt is not on avn blockers. 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 - no indication for ppm at this time. - ok to transfer to [facility] for further rehab. - cont to avoid avn blockers - f/u with Dr. 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 # s/p L TAMMY - pt/ot per ortho d/w Dr. Gonzalez and Dr. Foreman Problems: BARBARA RODRÍGUEZ Aug 12, 2016 07:43
[2016-08-12] MEDS: ASPIRIN (EC) 325 MG TAB PO SCH (09:22)
[2016-08-12] MEDS: DOCUSATE SODIUM 100 MG CAP PO SCH (09:22)
[2016-08-12] MEDS: PREGABALIN 25 MG CAP PO SCH (09:23)
[2016-08-12] MEDS: LACTATED RINGER'S 1,000 ML IV SCH (09:40)
--- NOTE | 2016-08-12 11:13 | CONS ---
Date/Time of Note Date/Time of Note DATE: 08/12/16 TIME: 11:10 Assessment/Plan Assessment/Plan Additional Assessment/Plan 1. Stable postoperative left hip. 2. Arrhythmia, asx, rev with cards, no need for pacemaker 3. Hx Hypertension, not problematic 4. Elev Scr, gave rx to have this repeated next tuesday, now with post void residual approx 360 cc (told needs urology follow up) Consultation Date/Type/Reason Admit Date/Time Aug 10, 2016 at 05:37 Initial Consult Date 08/10/16 Type of Consultation: Cardiology Referring Provider: MARIA D FOREMAN MD Detailed Summary Respiratory: No cough, No shortness of breath Cardiovascular: no complaints, No lightheadedness Gastrointestinal: no complaints Genitourinary: other (some difficulty voiding) Musculoskeletal: bone/joint pain Exam/Review of Systems Vital Signs Vitals Vital Signs Date Time Temp Pulse Resp B/P Pulse Ox O2 Delivery O2 Flow Rate FiO2 08/12/16 09:00 54 18 123/95 Nasal Cannula 08/12/16 08:00 98.5 97 08/11/16 05:00 2.0 Intake and Output 08/11/16 08/11/16 08/12/16 15:00 23:00 07:00 Intake Total 950 ml 2400 ml 100 ml Output Total 835 ml Balance 950 ml 1565 ml 100 ml Exam Neck: No jvd Respiratory: clear to auscultation Cardiovascular: regular rate and rhythm Gastrointestinal: soft Extremities: No edema (and no calf tend bilat) Results Result Diagram: 08/12/16 0625 08/12/16 0625 Results 24 hrs Laboratory Tests Test 08/12/16 06:25 Anion Gap 15 Blood Urea Nitrogen 28 H Calcium Level 8.8 Carbon Dioxide Level 26 Chloride Level 103 Creatinine 1.30 H Glucose Level 73 Hematocrit 31.2 L Hemoglobin 10.8 L Potassium Level 4.2 Sodium Level 140 Medications Medications Current Medications Miscellaneous Information 1 ea NOTE XX ; Start 08/10/16 at 07:00; Stop 08/14/16 at 06:59 Tramadol HCl (Ultram) 50 mg Q6 PO Last administered on 08/12/16t 06:28; Admin Dose 50 MG; Start 08/10/16 at 12:00; Stop 08/13/16 at 11:59 Oxycodone HCl (Roxicodone) 5 mg Q4H PRN PO PAIN LEVEL 1-3; Start 08/10/16 at 10: 30 Oxycodone HCl (Roxicodone) 10 mg Q4H PRN PO PAIN LEVEL 4-7; Start 08/10/16 at 10 :30 Hydromorphone HCl (Dilaudid) 1 mg Q3H PRN IV PAIN LEVEL 8-10; Start 08/10/16 at 10:30 Ondansetron HCl (Zofran Inj) 4 mg Q6H PRN IV NAUSEA AND/OR VOMITING; Start 08/10 at 10:30 Bisacodyl (Dulcolax Supp) 10 mg Q12H PRN [place] CONSTIPATION; Start 08/10/16 at 10: 30 Magnesium Hydroxide (Milk Of Mag) 30 ml BID PRN PO CONSTIPATION; Start 08/10/16 at 10:30 Sodium Biphosphate/ Sodium Phosphate (Fleet Enema) 133 ml DAILY PRN [place] CONSTIPATION; Start 08/10/16 at 10:30 Docusate Sodium (Colace) 100 mg BID PO Last administered on 08/12/16 09:22; Admin Dose 100 MG; Start 08/10/16 at 21:00 Diphenhydramine HCl (Benadryl) 25 mg Q6H PRN PO PRURITUS; Start 08/10/16 at 10: 30 Aspirin (Ecotrin) 325 mg BID PO Last administered on 08/12/16 09:22; Admin Dose 325 MG; Start 08/11/16 at 09:00 Pregabalin (Lyrica) 50 mg BID PO Last administered on 08/12/16 09:23; Admin Dose 50 MG; Start 08/10/16 at 21:00 Pantoprazole (Protonix Tab) 40 mg BID@06,18 PO Last administered on 08/12/16 06 :27; Admin Dose 40 MG; Start 08/10/16 at 18:00 Atropine Sulfate 0.5 mg 0.5 mg ONCE PRN IV DECREASED HEART RATE; Start 08/10/16 at 18:00 Lactated Ringer's (Lr) 1,000 ml @ 100 mls/hr Q10H IV Last administered on 19:00; Admin Dose 100 MLS/HR; Start 08/10/16 at 17:40 Tamsulosin HCl (Flomax) 0.4 mg HS PO Last administered on 08/11/16t 20:13; Admin Dose 0.4 MG; Start 08/11/16 at 21:00 MARIA D FOREMAN MD Aug 12, 2016 11:13
--- NOTE | 2016-08-12 12:13 | PDOCDIS ---
Discharge Instructions DIAGNOSIS Discharge Diagnosis: s/p left anterior TAMMY CONDITION Patient Condition: Good HOME CARE INSTRUCTIONS: Diet Instructions: RegularSpecial Diet: Mechanical soft ACTIVITY: Activity Restrictions: No Restrictions Slowly Increase Activity Rest between Activity Avoid heavy lifting Do not operate Machinery Do not operate Power Tool Avoid Heavy Housework Bathing Restrictions: Shower FOLLOW UP/APPOINTMENTS Appointments follow up with Dr. Vega in the office on 08/20/16 OTHER ORDERS: Other Orders: S/P Anterior TAMMY Physical Therapy: Three times per week at home x 2 weeks WB STATUS: WBAT Strengthening exercises for both upper and un-operated lower extremities. 1. Gait training with front wheeled walker 2. Wide base gait, no pivot turns. 3. Abductor strengthening. 4. Quadriceps and hamstring strengthening. 5. May switch to cane in contra lateral hand 6 weeks after surgery. 6. Physical Therapy can open case if nursing is not available. 7. Ice Packs while at rest to surgical wound for 20 minutes, 3 times/day. 8. Patient requires mobile SCDs to reduce risk of developing DVT following TAMMY. Patient will use the mobile SCDs for 30 days postoperatively. Hip Precautions: No posterior hip precautions. Bathing assistance by home health aide twice weekly if Medicare patient. Occupational Therapy: Evaluation for assistive devices and ADL training. Wound Care: Keep incision dry & covered with Tegaderm until first visit with Dr. Vega Anticoagulation Orders: Enteric Coated Aspirin 325 mg po bid x 6 weeks from date of surgery Follow-up:Call for an appointment with Dr. Vega in 1 week after discharged from hospital at DME Orders: PINKY, 3-in-1 Commode, Mobile SCDs AYLIN DGUAN PA-C Aug 12, 2016 12:13
[2016-08-12] MEDS ORDERED: HYDR-906 PO (12:17)
[2016-08-12] MEDS ORDERED: PANT40TA4 PO (12:17)
[2016-08-12] MEDS ORDERED: ASPI325T32 PO (12:17)
[2016-08-12] MEDS ORDERED: LYRI25 PO (12:17)
[2016-08-12] MEDS ORDERED: ULT50 PO (12:17)
--- NOTE | 2016-08-13 09:41 | DS ---
DATE OF ADMISSION: 08/10/2016 DATE OF DISCHARGE: 08/12/2016 CONDITION UPON DISCHARGE: Stable. ADMITTING DIAGNOSIS: Left hip osteoarthritis. DISCHARGE DIAGNOSIS: Status post left anterior total hip arthroplasty. PROCEDURE PERFORMED: Left anterior total hip arthroplasty. HOSPITAL COURSE: This is an 86-year-old male who was seen in the clinic, initially complaining of left hip pain. Radiographically he was noted to have advanced osteoarthritis and elected to proceed with a total hip arthroplasty. On 08/10/2016, the patient was admitted and taken to the operating room, where he underwent a left anterior total hip arthroplasty. There were no intraoperative complications. The patient tolerated the procedure well. He was taken to the recovery room in stable condition. He was given routine perioperative IV antibiotics. Pain was well controlled with oral pain medication. He was started on enteric coated aspirin 325 mg b.i.d. and SCDs for DVT prophylaxis. In the PACU he did develop some bradycardia with Mobitz type 1 and Mobitz type 2 second-degree heart blocks. Cardiology was consulted and did evaluate the patient. He remained completely asymptomatic throughout his hospital course. On postoperative day zero, he did well with physical therapy and continued to do so throughout his course in throughout his stay. The drain was also removed on postoperative day 1. On postoperative day 2 cardiology cleared the patient, as he was asymptomatic, despite his bradycardia , and he was discharged home in stable condition. Prior to discharge the wound was inspected and noted to be clean, dry and intact. Dressing changes were done prior to the patient being sent home. LABORATORY ANALYSIS UPON DISCHARGE: Hemoglobin 10.8, hematocrit 31.2. Chemistry panel was within normal limits, except for a BUN of 28, creatinine 1.30. DISCHARGE MEDICATIONS: 1. Tramadol 50 mg. 2. Garrison 5/325 mg. 3. Aspirin 325 mg. 4. Lyrica 50 mg. 5. Protonix 40 mg. Additionally, the patient is to resume all his normal home medications. DISCHARGE INSTRUCTIONS: The patient will be discharged home in stable condition. He should resume a normal diet. Activities include weightbearing as tolerated on the affected lower extremity. He is to continue with physical therapy. He will be discharged home on the medications noted above. He should resume all of his normal home medications. The patient is to call the office or return to the emergency room for any concerns, including increased redness, swelling, drainage or fever, or any concerns regarding the operation or the site of incision. FOLLOWUP: The patient is to follow up in the office of Dr. Vega on 2016. Dictated By: AYLIN ADAME for MADONNA LEMUS/MIGUEL Conf#: [id number] DID#: [id number] MTDD
== END 2016-08-12 12:58 | disposition home or self-care (01) | DRG 470 ==
LOC: REC 05:37 → MS1 12:18 → REC 13:07 → TEL 14:47 → ICU 17:44 → MS4 08-11 23:10 → ICU 08-12 04:04
PROVIDERS: ADMIT Orthopaedic Surgery; ATTEND Orthopaedic Surgery
PROC: 0SRB04Z Replacement of Left Hip Joint with Ceramic on Polyethylene Synthetic Substitute, Open Approach (ICD-10-PCS; principal; 2016-08-10 07:00)
DX: M16.12 Unilateral primary osteoarthritis, left hip (principal); I44.1 Atrioventricular block, second degree; R00.1 Bradycardia, unspecified; I10 Essential (primary) hypertension; I49.9 Cardiac arrhythmia, unspecified; F17.200 Nicotine dependence, unspecified, uncomplicated
CPT/HCPCS: 72170; 73530; 80048; 83735; 84443; 85014; 85018; 86850; 86900; 86901; 86920; 87081; 87086; 88304; 88311; 93005; 93306; 97110; 97116; 97163; 97166; 97530; Z7610; C1776; J0131; J0171; J0461; J0690; J0697; J0735; J1100; J1885; J2001; J2250; J2274; J2405; J2710; J3010; J3370; J7120

== ENCOUNTER → 2016-08-20 | Outpatient (CLI) | payer MEDICARE, BC ==
[~2016-08-20] MED LIST: ASPI325T32 PO; HYDR-906 PO; LYRI25 PO; PANT40TA4 PO; ULT50 PO
--- NOTE | 2016-08-20 12:02 | RADRPT ---
PROCEDURE: XR pelvis/left hip. CLINICAL INDICATION: Hip pain TECHNIQUE: AP pelvis/lateral left hip view performed. COMPARISON: 08/10/2016 FINDINGS: There is a left total hip replacement. There is no evidence of loosening of the prosthesis. There is severe right hip osteoarthrosis. This is associated with joint space narrowing, subchondral sclerosis, subchondral cyst formation and osteophytosis. There is normal osseous mineralization. No fractures or osseous lesions are identified. The soft tissues are unremarkable. IMPRESSION: Left total hip replacement. Severe right hip osteoarthrosis. RPTAT: HGDB .Brian Torres MD, Date Time Electronically viewed and signed by .Brian Torres MD, on 08/20/2016 12:01 .B/
== END | disposition home or self-care (01) ==
LOC: HKI 09:26
PROVIDERS: ATTEND Orthopaedic Surgery
DX: Z47.1 Aftercare following joint replacement surgery (principal); M16.12 Unilateral primary osteoarthritis, left hip; Z96.642 Presence of left artificial hip joint
CPT/HCPCS: 73502; G0463

== ENCOUNTER → 2016-09-17 | Outpatient (CLI) | payer MEDICARE, BC ==
[~2016-09-17] MED LIST changes: +TRAM50TA2 PO; -ULT50 PO
--- NOTE | 2016-09-17 11:55 | RADRPT ---
PROCEDURE: XR pelvis/left hip. CLINICAL INDICATION: Hip pain TECHNIQUE: AP pelvis/lateral left hip view available for review. COMPARISON: 08/20/2016 FINDINGS: There is a left total hip replacement. There is no evidence of loosening of the prosthesis. There is severe right hip osteoarthrosis. This is associated with joint space narrowing, subchondral sclerosis, subchondral cyst formation and osteophytosis. There is normal osseous mineralization. No fractures or osseous lesions are identified. The soft tissues are unremarkable. IMPRESSION: Left total hip replacement. Severe right hip osteoarthrosis. RPTAT: HGDB .Brian Torres MD, Date Time Electronically viewed and signed by .Brian Torres MD, on 09/17/2016 11:55 .B/
== END | disposition home or self-care (01) ==
LOC: HKI 08:45
PROVIDERS: ATTEND Orthopaedic Surgery
DX: Z47.1 Aftercare following joint replacement surgery (principal); Z96.642 Presence of left artificial hip joint
CPT/HCPCS: 73502; G0463

== ENCOUNTER → 2016-11-12 | Outpatient (CLI) | payer MEDICARE, BC | END | disposition home or self-care (01) | LOC: HKI 08:47 | PROVIDERS: ATTEND Orthopaedic Surgery | DX: Z47.1 Aftercare following joint replacement surgery (principal); Z96.642 Presence of left artificial hip joint | CPT/HCPCS: G0463 ==